=== PATIENT | female | born 1990 | race Hispanic/Latino ===

== ENCOUNTER 2019-04-20 20:15 | Emergency (ER) | payer OTHER ==
[2019-04-20] MEDS ORDERED: ORPHENADRINE CITRATE 30 MG/ML ML ONE (20:53)
[2019-04-20] MEDS ORDERED: KETOROLAC TROMETHAMINE 60 MG/2 ML VIAL ONE (20:53)
[2019-04-20] MEDS ORDERED: LIDOCAINE 5% TOPICAL PATCH TP ONE (20:54)
== END 2019-04-20 22:54 | disposition home or self-care (01) ==
LOC: EDH 20:15
DX: R07.89 Other chest pain (principal); F41.1 Generalized anxiety disorder; M62.830 Muscle spasm of back; F12.10 Cannabis abuse, uncomplicated; Z72.0 Tobacco use
CPT/HCPCS: 71046; 93005; 96372 ×2; 99284; J1885; J2360